=== PATIENT | male | born 1970 | race Caucasian/White ===

== ENCOUNTER 2017-07-19 02:22 | Emergency (ER) | payer BC, OTHER ==
[~2017-07-19] VITALS: Ht 188 cm; Wt 99.2 kg
[~2017-07-19 02:22] MED LIST: ASPEC81 PO; LPR25 PO; LPT40 PO; PLV75 PO
[2017-07-19 02:24] VITALS: TEMP 36.4; Ht 188 cm; Wt 99.2 kg
[2017-07-19] MEDS ORDERED: KETOROLAC TROMETHAMINE 30 MG/ML VIAL IV STA (02:46)
[2017-07-19] MEDS ORDERED: SODIUM CHLORIDE 0.9% 1000ML 1,000 ML IV STA (02:46)
[2017-07-19] MEDS ORDERED: ONDANSETRON INJ 2 MG/ML 2 ML VIAL IV STA (02:46)
--- NOTE | 2017-07-19 02:50 | EMERGENCY ROOM VISIT NOTE ---
History First contact with patient: 02:28 Chief Complaint: KIDNEY STONE Stated Complaint: KIDNEY STONE History of Present Illness The patient is a 47 year old male who presents to the Emergency Room with complaints of right flank pain times one hour. The patient states his pain started suddenly. The pain radiates from the right flank into the groin. He states that the pain is a constant 5/10, and intermittently worsens to become a 10/10. He has associated nausea without vomiting. He denies urinary symptoms. The patient does report a history of kidney stones but has not had one in several years. Review of Systems A complete 10 point review of systems was reviewed with the patient with pertinent positives and negatives as per history of present illness. All else were negative. Past Medical/Surgical History Medical Problems: (1) CALCULUS OF KIDNEY Family History Cancer Heart disease Hypertension Social History Smoking Status: Never Smoker Alcohol Use: none Marital Status: Housing Status: lives with significant other Occupation Status: employed Current/Historical Medications Scheduled Aspirin (Aspirin Ec), 81 MG PO DAILY Atorvastatin (Lipitor), 80 MG PO DAILY Clopidogrel (Plavix), 75 MG PO DAILY Metoprolol Tartrate (Lopressor) (Lopressor), 12.5 MG PO BID Ondasetron Odt (Zofran Odt), 4 MG SL Q6H Tamsulosin Hcl (Flomax), 0.4 MG PO DAILY Scheduled PRN Oxycodone/Acetaminophen 5MG/325MG (Percocet 5MG/325MG), 1-2 TABS PO Q4H PRN for Pain Physical Exam Vital Signs Date Time Temp Pulse Resp B/P (MAP) Pulse Ox O2 Delivery O2 Flow Rate FiO2 07/19/17 04:33 63 18 128/76 98 07/19/17 02:24 36.4 58 18 153/99 98 Room Air Physical Exam VITALS: Vitals are noted on the nurse's note and reviewed by myself. Vital signs stable. GENERAL: This is a 47-year-old male, in no acute distress, nondiaphoretic, well- developed well-nourished. SKIN: No rashes. HEART: Regular rate and rhythm without murmurs gallops or rubs. LUNGS: Clear to auscultation bilaterally without wheezes, rales or rhonchi. ABDOMEN: Positive bowel sounds x 4. Soft, mild tenderness in the right lower quadrant. No CVA tenderness. NEURO: Patient was alert and oriented to person place and time. Medical Decision & Procedures ER Provider Diagnostic Interpretation: CT ABDOMEN & PELVIS WITHOUT CONTRAST: 3 mm calculus seen within distal right ureter, which causes minimal hydroureteronephrosis. There are additional nonobstructing calculi within both kidneys. Additional findings: Lower thorax is unremarkable. There are couple low-density lesions within the liver, the largest in the right hepatic lobe measuring 5.7 cm. These are grossly unchanged compared to the prior. Again these are of indeterminate etiology. Gallbladder, spleen, pancreas and adrenal glands are unremarkable. Appendix is unremarkable. Bowel is unremarkable. Again seen is a full masslike lesion occupying and expanding the left neural foramen at L2-3. Again findings may represent but are not limited to a perineural cyst versus neurofibroma. No acute osseous abnormality. Radiologist: Celso Forrest MD Laboratory Results 07/19/17 02:50 Red Blood Count 5.08, Mean Corpuscular Volume 86.2, Mean Corpuscular Hemoglobin 29.9, Mean Corpuscular Hemoglobin Concent 34.7, Mean Platelet Volume 10.1, Neutrophils (%) (Auto) 51.8, Lymphocytes (%) (Auto) 33.7, Monocytes (%) (Auto) 11.5, Eosinophils (%) (Auto) 2.0, Basophils (%) (Auto) 0.7, Neutrophils # (Auto ) 3.56, Lymphocytes # (Auto) 2.32, Monocytes # (Auto) 0.79, Eosinophils # (Auto ) 0.14, Basophils # (Auto) 0.05 07/19/17 02:50 Test 07/19/17 02:45 07/19/17 02:50 Urine Color DK YELLOW Urine Appearance CLOUDY (CLEAR) Urine pH 5.0 (4.5-7.5) Urine Specific Radisson 1.030 (1.000-1.030) Urine Protein NEG (NEG) Urine Glucose (UA) NEG (NEG) Urine Ketones TRACE (NEG) Urine Occult Blood 3+ (NEG) Urine Nitrite NEG (NEG) Urine Bilirubin NEG (NEG) Urine Urobilinogen NEG (NEG) Urine Leukocyte Esterase NEG (NEG) Urine WBC (Auto) 1-5 /hpf (0-5) Urine RBC (Auto) >30 /hpf (0-4) Urine Hyaline Casts (Auto) 1-5 /lpf (0-5) Urine Epithelial Cells (Auto) 10-20 /lpf (0-5) Urine Bacteria (Auto) NEG (NEG) White Blood Count 6.88 K/uL (4.8-10.8) Red Blood Count 5.08 M/uL (4.7-6.1) Hemoglobin 15.2 g/dL (14.0-18.0) Hematocrit 43.8 % (42-52) Mean Corpuscular Volume 86.2 fL (80-100) Mean Corpuscular Hemoglobin 29.9 pg (25-34) Mean Corpuscular Hemoglobin Concent 34.7 g/dl (32-36) Platelet Count 217 K/uL (130-400) Mean Platelet Volume 10.1 fL (7.4-10.4) Neutrophils (%) (Auto) 51.8 % Lymphocytes (%) (Auto) 33.7 % Monocytes (%) (Auto) 11.5 % Eosinophils (%) (Auto) 2.0 % Basophils (%) (Auto) 0.7 % Neutrophils # (Auto) 3.56 K/uL (1.4-6.5) Lymphocytes # (Auto) 2.32 K/uL (1.2-3.4) Monocytes # (Auto) 0.79 K/uL (0.11-0.59) Eosinophils # (Auto) 0.14 K/uL (0-0.5) Basophils # (Auto) 0.05 K/uL (0-0.2) RDW Standard Deviation 39.3 fL (36.4-46.3) RDW Coefficient of Variation 12.3 % (11.5-14.5) Immature Granulocyte % (Auto) 0.3 % Immature Granulocyte # (Auto) 0.02 K/uL (0.00-0.02) Anion Gap 8.0 mmol/L (3-11) Est Creatinine Clear Calc Drug Dose 102.3 ml/min Estimated GFR () 90.9 Estimated GFR (Non- 78.4 BUN/Creatinine Ratio 17.7 (10-20) Calcium Level 8.8 mg/dl (8.5-10.1) Total Bilirubin 0.6 mg/dl (0.2-1) Aspartate Amino Transf (AST/SGOT) 30 U/L (15-37) Alanine Aminotransferase (ALT/SGPT) 59 U/L (12-78) Alkaline Phosphatase 75 U/L (45-117) Total Protein 7.2 gm/dl (6.4-8.2) Albumin 3.9 gm/dl (3.4-5.0) Globulin 3.3 gm/dl (2.5-4.0) Albumin/Globulin Ratio 1.2 (0.9-2) Lipase 153 U/L (73-393) Medications Administered Medications (Trade) Dose Ordered Sig/Geo Route Start Time Stop Time Status Last Admin Dose Admin Sodium Chloride 1,000 ml @ 999 mls/hr Q1H1M STAT IV 07/19/17 02:46 07/19/17 03:46 DC 07/19/17 02:55 999 MLS/HR Ondansetron HCl (Zofran Inj) 4 mg NOW STAT IV 07/19/17 02:46 07/19/17 02:47 DC 07/19/17 02:55 4 MG Ketorolac Tromethamine (Toradol Inj) 30 mg NOW STAT IV 07/19/17 02:46 07/19/17 02:47 DC 07/19/17 02:57 30 MG Oxycodone/ Acetaminophen (Percocet 5/ 325MG Home Pack) 1 homepack UD ONCE PO 07/19/17 04:15 07/19/17 04:16 DC 07/19/17 04:28 1 HOMEPACK Ondansetron HCl (ZOFRAN ODT 4MG Home Pack) 1 homepack UD ONCE PO 07/19/17 04:15 07/19/17 04:16 DC 07/19/17 04:28 1 HOMEPACK Tamsulosin HCl (Flomax Cap) 0.4 mg NOW ONCE PO 07/19/17 04:15 07/19/17 04:16 DC 07/19/17 04:28 0.4 MG ED Course The patient was evaluated as above. Labs were drawn and IV access was obtained. Patient was medicated with 1 L normal saline solution, 30 mg Toradol IV and [address] of the abdomen and pelvis was performed and read by radiology as above. Patient was reevaluated and stated he felt much better. Discharge instructions were reviewed with the patient. The patient verbalized understanding of my assessment and treatment plan and was discharged home in good condition. Medical Decision Differential diagnosis includes kidney stone, pyelonephritis, gastroenteritis, colitis, pancreatitis, cholecystitis, among others. The patient is a 47-year-old male who presents today complaining of right flank pain. Labs were unremarkable. Urinalysis was not suggestive of infection. CT shows a 3 mm obstructing kidney stone. Patient will be treated with pain and nausea medications at home. He was given a urine strainer. He was encouraged to return here for any worsening or new/concerning symptoms. Based on the patient's presentation and work up, I feel the patient is stable for outpatient treatment. The patient was educated to return to the emergency department for any worsening of their current condition or new/concerning symptoms. He will follow up with his PCP/urology as needed. Medication Reconcilliation Current Medication List: was personally reviewed by me Blood Pressure Screening Patient's blood pressure: Normal blood pressure Impression Primary Impression: Ureteral calculus Departure Information Dispostion Home / Self-Care Condition GOOD Prescriptions Tamsulosin Hcl (FLOMAX) 0.4 Mg Cap 0.4 MG PO DAILY for 10 Days, #10 CAP Prov: Alona Madden PA-C 07/19/17 Ondasetron Odt (ZOFRAN ODT) 4 Mg Tab 4 MG SL Q6H for Nausea, #15 TAB Prov: Alona Madden PA-C 07/19/17 Oxycodone/Acetaminophen 5MG/325MG (PERCOCET 5MG/325MG) Tab 1-2 TABS PO Q4H Y for Pain, #24 TAB For Initial Treatment Prov: Alona Madden PA-C 07/19/17 Referrals Moe Patel M.D. (PCP) Patient Instructions My [facility] Additional Instructions You have been treated in the Emergency Department today for a Kidney Stone ( Nephrolithiasis). You have been prescribed Percocet to be used for pain control. This is a narcotic medication. You cannot drive or consume alcohol while on this medicine. This medicine should only be used for pain that cannot be controlled with [id number] pain medicines. You have been prescribed Zofran to be used for any nausea or vomiting. Take as prescribed. You have been prescribed Flomax 0.4 mg to be taken ONCE daily. This medicine has been prescribed as it can help relax the smooth muscles of the urinary tract increasing transit time of the kidney stone. For pain control, you can use the following [id number] medicines (if >12 yo): - Regular strength (325mg/tab) Tylenol (acetaminophen) 2 tabs every 4-6 hours as needed. Do not exceed 12 tablets in a 24 hour period. Avoid taking more than 4 grams (4000 mg) of Tylenol per day. This includes any other sources of acetaminophen you may take on a regular basis. - Regular strength (200 mg/tab) Advil (ibuprofen) 1-2 tabs every 4-6 hours as needed. Do not exceed a dose of 3200 mg per day. You have been provided a strainer and specimen collection cup. You should strain your urine to collect any passed stones. Your stones can be placed into the specimen cup and taken to your Urologist for further evaluation. Follow up with your primary care provider this week. Return to the Emergency Department if your symptoms persist despite the treatment plan outlined above or if you develop the following symptoms: intractable pain, fever, chills, or large amounts of blood in your urine.
[2017-07-19 03:02] LABS: BASO % 0.7 %; BASO ABS # 0.05 K/uL (0-0.2); COMPLETE YES; HEMATOCRIT 43.8 % (42-52); IG% 0.3 %; LYMPH % 33.7 %; LYMPH ABS # 2.32 K/uL (1.2-3.4); MEAN CELL VOLUME 86.2 fL (80-100); MEAN CORPUSCULAR HEMOGLOBIN 29.9 pg (25-34); MEAN CORPUSCULAR HGB CONC 34.7 g/dl (32-36); MEAN PLATELET VOLUME 10.1 fL (7.4-10.4); MONO % 11.5 %; NEUT % 51.8 %; PLATELET COUNT 217 K/uL (130-400); RED BLOOD COUNT 5.08 M/uL (4.7-6.1); WHITE BLOOD COUNT 6.88 K/uL (4.8-10.8)
[2017-07-19] MEDS ORDERED: METO25TA56 PO (03:10)
[2017-07-19] MEDS ORDERED: ASPI81TA28 PO (03:10)
[2017-07-19] MEDS ORDERED: ATOR-26 PO (03:10)
[2017-07-19] MEDS ORDERED: CLOP1TAB15 PO (03:10)
[2017-07-19 03:22] LABS: BUN/CREATININE RATIO 17.7 (10-20); CALCIUM 8.8 mg/dl (8.5-10.1); CREATININE 1.1 mg/dl (0.60-1.40); POTASSIUM 3.8 mmol/L (3.5-5.1)
[2017-07-19 03:25] LABS: ALB/GLOB RATIO 1.2 (0.9-2)
[2017-07-19 03:37] LABS: MANUAL MICROSCOPIC REQUIRED? NO; REVIEW REQ? NO; URINE APPEARANCE CLOUDY (CLEAR); URINE BILIRUBIN NEG (NEG); URINE COLOR DK YELLOW; URINE NITRITE NEG (NEG); UROBILINOGEN NEG (NEG); ZZUR CULT IF INDIC CLEAN CATCH NO
[2017-07-19] MEDS ORDERED: TAMS0.4C38 PO (04:13)
[2017-07-19] MEDS ORDERED: ONDA4TAB10 SL (04:13)
[2017-07-19] MEDS ORDERED: OXYC-57 PO (04:13)
[2017-07-19] MEDS ORDERED: TAMSULOSIN HCL 0.4 MG CAP PO ONE (04:15)
[2017-07-19] MEDS ORDERED: PERCOCET HOME PACK PO ONE (04:15)
[2017-07-19] MEDS ORDERED: ONDANSETRON HOME PACK 4MG OD TAB PO ONE (04:15)
[2017-07-19 04:33] VITALS: BP 128/76; PULSE 63; O2SAT 98
--- NOTE | 2017-07-19 07:14 | DIAGNOSTIC IMAGING REPORT ---
ABD/PELVIS WITHOUT FOR STONE HISTORY: 47 years-old Male right flank pain, hx kidney stones acute right-sided flank pain with history of kidney stones. COMPARISON: CT abdomen and pelvis 02/22/2011, MRI lumbar spine 08/25/2011 and 04/21/2013, PET CT 09/15/2011 TECHNIQUE: Multiple axial CT images of the abdomen and pelvis were obtained without IV contrast. A dose lowering technique was used consistent with the principals of OLIVIA. FINDINGS: There is minimal dependent bibasilar atelectasis. No pneumoperitoneum. Imaged inferior cardiac chambers are unremarkable. There is redemonstration of multiple hepatic lesions, largest of which is loculated with peripherally slightly increased attenuation and central low-attenuation, 4.4 x 5.4 cm which previously measured 5.1 x 4.0 cm on study dated 02/22/2011. 2.1 x 1.8 cm posterior right hepatic lobe lesion seen on image 32 of series 2 previously measured 1.3 x 0.9 cm on study dated 02/22/2011. The largest lesion within the left hepatic lobe measures 1.8 x 1.4 cm, also unchanged. Gallbladder is mildly contracted. Spleen, pancreas and adrenal glands are within normal limits. 3 mm nonobstructing calculus is seen within the inferior pole left kidney. There are several nonobstructing right renal calculi present, largest of which measures 3 mm within the inferior pole. There is mild right-sided hydroureteronephrosis with surrounding inflammatory stranding secondary to a 4 x 3 x 4 mm calculus of the distal right ureter which is present approximately 1.5 cm proximal to the ureterovesicular junction. Urinary bladder is partially collapsed. Prostate is unremarkable. The abdominal aorta is normal in course and caliber. There is no bowel obstruction or focal bowel wall thickening. Rectosigmoid is collapsed. The appendix is normal. Ovoid slightly low attenuating circumscribed structure of the left L2-L3 neuroforamen is again seen which has slightly decreased in size from comparison CT now measuring 4.0 x 2.2 x 4.7 cm in transverse, AP and craniocaudal dimensions. This again causes expansion and smooth remodeling of the left neuroforamen. Unchanged lytic 2.3 x 1.5 cm lesion involves the left lower sternal body, also unchanged. This again suggests a benign lesion as seen on comparison studies. The bones appear otherwise intact and unremarkable. IMPRESSION: 1. Mild right-sided hydroureteronephrosis secondary to a 4 x 3 x 4 mm calculus of the distal right ureter which is present approximately 1.5 cm proximal to the ureterovesicular junction. Bilateral nonobstructing renal calculi are present as above. 2. Several mildly complex indeterminate hepatic lesions are again noted. The lesions appear to be slightly increased in size from comparison study dated 02/22/2011. 3. Mildly decreased size of expansile ovoid circumscribed mass centered within the left L2-L3 neuroforamen, again suggesting neurofibroma or schwannoma. 4. Unchanged lytic lesion of the lower left sternal body which did not demonstrate FDG uptake on comparison PET CT suggesting benign etiology. The above report was generated using voice recognition software. It may contain grammatical, syntax or spelling errors. Electronically signed by: Polo White M.D. 07/19/2017 7:13 AM Dictated Date/Time: 07/19/2017 6:57 AM
== END 2017-07-19 04:34 | disposition home or self-care (01) ==
LOC: C.EDB 02:22
DX: N13.2 Hydronephrosis with renal and ureteral calculous obstruction (principal); Z80.9 Family history of malignant neoplasm, unspecified; Z82.49 Family history of ischemic heart disease and other diseases of the circulatory system; Z79.82 Long term (current) use of aspirin; Z79.01 Long term (current) use of anticoagulants; Z79.899 Other long term (current) drug therapy

== ENCOUNTER → 2017-12-27 | Outpatient (CLI) | payer OTHER ==
[~2017-12-27] MED LIST changes: -ASPEC81 PO; +ASPI81TA28 PO; +ATOR-26 PO; +CLOP1TAB15 PO; -LPR25 PO; -LPT40 PO; +METO25TA56 PO; +ONDA4TAB10 SL; +OXYC-57 PO; -PLV75 PO
== END | disposition home or self-care (01) ==
LOC: C.LAB 08:35
PROVIDERS: ATTEND Internal Medicine Cardiovascular Disease
DX: E78.5 Hyperlipidemia, unspecified (principal)

== ENCOUNTER 2020-12-04 09:58 | Inpatient (IN) ==
[2020-12-04] MEDS ORDERED: ASPIRIN CHEW 324 MG PO STA (10:19)
[2020-12-04] MEDS ORDERED: NITROGLYCERIN SL 0.4 MG/TAB TAB SL STA (10:19)
[2020-12-04] MEDS ORDERED: NITROGLYCERIN SL 0.4 MG/TAB TAB ONE (10:22)
[2020-12-04] MEDS ORDERED: MIDAZOLAM HCL 1 MG/ML 2ML VIAL ONE ×2 (10:25→11:16)
[2020-12-04] MEDS ORDERED: niCARdipine HCL INJ 2.5 MG/ML 10 ML AMP ONE (10:26)
[2020-12-04] MEDS ORDERED: HEPARIN (PORCINE) 1000 UNIT/ML 10 ML (CATH LAB USE ONLY) ONE (10:26)
[2020-12-04] MEDS ORDERED: fentaNYL citrate 100 MCG/2 ML VIAL ONE (10:26)
[2020-12-04] MEDS ORDERED: NITROGLYCERIN/D5W 100MCG/ML 20ML SYR ONE (10:26)
[2020-12-04 10:28] LABS: Basophils # (auto) 0.03 K/uL (0-0.2); Basophils % (auto) 0.4 %; Eosinophils # (auto) 0.02 K/uL (0-0.5); Eosinophils % (auto) 0.3 %; Hematocrit (blood only) 45.8 % (42-52); Immature Granulocytes # (auto) 0.01 K/uL (0.00-0.02); Immature Granulocytes % (auto) 0.1 %; Lymphocytes # (auto) 2.71 K/uL (1.2-3.4); Lymphocytes % (auto) 38.6 %; Mean Corpuscular Hgb Conc 34.9 g/dL (32-36); Mean Corpuscular Volume 85.9 fL (80-100); Mean Platelet Volume 10.1 fL (7.4-10.4); Monocytes # (auto) 0.77 K/uL (0.11-0.59); Neutrophils # (auto) 3.48 K/uL (1.4-6.5); Neutrophils % (auto) 49.6 %; Platelet Count 266 K/uL (130-400); RDW Coefficient of Variation 12.6 % (11.5-14.5); RDW Standard Deviation 39.7 fL (36.4-46.3); Red Blood Count 5.33 M/uL (4.7-6.1); White Blood Count 7.02 K/uL (4.8-10.8)
[2020-12-04 10:33] LABS: iSTAT Creatinine 1.1 mg/dl (0.6-1.3); iSTAT Hemoglobin 15.6 g/dl (14.0-18.0); iSTAT Ionized Calcium 1.13 mmol/l (1.12-1.32); iSTAT Potassium 3.8 mmol/L (3.3-5.0)
--- NOTE | 2020-12-04 10:38 | Emergency Department Note ---
History of Present Illness General Chief complaint: Cardiac Assessment Stated complaint: CHEST TIGHTNESS SOB HX CARDIAC Time Seen by Provider: 12/04/20 10:18 Source: patient and family (Mother who is at the bedside) Mode of arrival: ambulatory Limitations: no limitations History of Present Illness Maximum Pain Intensity: 4 This patient is a 50-year-old male who comes in planing of chest pain and shortness of breath and nausea. Started this morning about 2 hours ago. He has a history of cardiac disease with stents. He is on Plavix but withheld it recently for endoscopy. He tried to restart it this morning. The nurse came and got me because she was concerned about his EKG he was placed in room A9 on a court recording monitor I saw him immediately. I repeated an EKG and did call a heart alert. He denies any fall or trauma any recent illness exposure to Covid any fever chills or any blood or black colors in his stool. He makes his pain better or worse. It is not pleuritic. Home Medications Medication Instructions Recorded Confirmed Type aspirin 81 mg PO QAM 08/30/18 12/04/20 History clopidogrel 75 mg tablet 75 mg PO QAM #90 tab 12/27/19 12/04/20 Rx atorvastatin 80 mg tablet 80 mg PO QAM #90 tab 01/07/20 12/04/20 Rx metoprolol tartrate 25 mg tablet 12.5 mg PO BID #90 tab 01/07/20 12/04/20 Rx Allergies Allergy/AdvReac Type Severity Reaction Status Date / Time No Known Drug Allergies Allergy Verified 12/04/20 10:42 Past Med/Surg History Medical History CAD (coronary artery disease) History of kidney stones History of OH (myocardial infarction) 2013--follows with Dr. Johnson Hypercholesterolemia On anticoagulant therapy plavix daily d/t stents/OH Surgical History History of cardiac cath (~06/2014) @ [facility] History of colonoscopy with polypectomy History of heart artery stent (2)ARIANA @ [facility] 06/2014 History of wisdom tooth extraction Family History Uncle Family hx of colon cancer Father Family hx colonic polyps Other No family history of adverse response to anesthesia No pertinent family history Social History Smoking Status: Never smoker Second Hand Exposure: No; Hx Alcohol Use: No Hx Substance Use: No Preferred Language: Citizen Of [place] Communication Ability: Effective [employer]el[employer]r Required: No Beliefs That Will Affect Care: None Current Living Situation: Spouse Other Information That Helps Us Care for You: No Feels Safe at Home: Yes Safety Concerns: Feels Safe At This Time Assistive Devices: Glasses Review of Systems A total of 10 systems reviewed and were otherwise negative Physical Exam Vital Signs Vital Signs - 24 hr 12/04/20 10:05 12/04/20 10:13 12/04/20 10:15 Temperature 36.6 C Temperature Source Temporal Artery Scan Pulse Rate 55 L 61 63 Pulse Rate [Left Apical] Pulse Rate from SpO2 Sensor Pulse Rhythm Pulse Rhythm [Left Apical] Pulse Strength [Left Apical] Respiratory Rate 20 25 H 25 H Respiratory Effort / Characteristics Respiratory Depth Respiratory Pattern Blood Pressure 141/92 H Blood Pressure [Left Arm] Blood Pressure Mean 108 Blood Pressure Mean [Left Arm] Blood Pressure Position [Left Arm] Pulse Oximetry 100 Oxygen Delivery Method Room Air Sepsis Recent Fever Within 48 Hours No Sepsis New/Unexplained Change in Mental Status No Sepsis Action Taken by Nursing No Action Required 12/04/20 10:17 12/04/20 10:20 12/04/20 10:24 Temperature Temperature Source Pulse Rate 62 65 64 Pulse Rate [Left Apical] Pulse Rate from SpO2 Sensor 61 64 Pulse Rhythm Regular Pulse Rhythm [Left Apical] Pulse Strength [Left Apical] Respiratory Rate 27 H 24 24 Respiratory Effort / Characteristics SOB on Exertion Respiratory Depth Normal Respiratory Pattern Blood Pressure 155/100 H 150/90 H Blood Pressure [Left Arm] Blood Pressure Mean 118 110 Blood Pressure Mean [Left Arm] Blood Pressure Position [Left Arm] Pulse Oximetry 100 100 100 Oxygen Delivery Method Room Air Sepsis Recent Fever Within 48 Hours Sepsis New/Unexplained Change in Mental Status Sepsis Action Taken by Nursing 12/04/20 10:25 12/04/20 10:29 12/04/20 10:30 Temperature Temperature Source Pulse Rate 64 66 71 Pulse Rate [Left Apical] Pulse Rate from SpO2 Sensor 63 68 67 Pulse Rhythm Pulse Rhythm [Left Apical] Pulse Strength [Left Apical] Respiratory Rate 30 H 27 H 32 H Respiratory Effort / Characteristics Respiratory Depth Respiratory Pattern Blood Pressure 151/89 H 151/91 H 123/96 Blood Pressure [Left Arm] Blood Pressure Mean 109 111 105 Blood Pressure Mean [Left Arm] Blood Pressure Position [Left Arm] Pulse Oximetry 100 100 99 Oxygen Delivery Method Sepsis Recent Fever Within 48 Hours Sepsis New/Unexplained Change in Mental Status Sepsis Action Taken by Nursing 12/04/20 10:31 12/04/20 10:35 12/04/20 10:36 Temperature Temperature Source Pulse Rate 76 61 63 Pulse Rate [Left Apical] Pulse Rate from SpO2 Sensor 75 61 63 Pulse Rhythm Pulse Rhythm [Left Apical] Pulse Strength [Left Apical] Respiratory Rate 19 25 H 24 Respiratory Effort / Characteristics Respiratory Depth Respiratory Pattern Blood Pressure 137/88 Blood Pressure [Left Arm] Blood Pressure Mean 104 Blood Pressure Mean [Left Arm] Blood Pressure Position [Left Arm] Pulse Oximetry 97 100 99 Oxygen Delivery Method Sepsis Recent Fever Within 48 Hours Sepsis New/Unexplained Change in Mental Status Sepsis Action Taken by Nursing 12/04/20 10:37 12/04/20 10:38 12/04/20 10:45 Temperature Temperature Source Pulse Rate 61 61 58 L Pulse Rate [Left Apical] Pulse Rate from SpO2 Sensor 60 62 59 L Pulse Rhythm Pulse Rhythm [Left Apical] Pulse Strength [Left Apical] Respiratory Rate 25 H 26 H 25 H Respiratory Effort / Characteristics Respiratory Depth Respiratory Pattern Blood Pressure 129/95 152/91 H Blood Pressure [Left Arm] Blood Pressure Mean 106 111 Blood Pressure Mean [Left Arm] Blood Pressure Position [Left Arm] Pulse Oximetry 100 100 100 Oxygen Delivery Method Sepsis Recent Fever Within 48 Hours Sepsis New/Unexplained Change in Mental Status Sepsis Action Taken by Nursing 12/04/20 10:47 12/04/20 12:12 12/04/20 12:27 Temperature 36.5 C Temperature Source Oral Pulse Rate 58 L Pulse Rate [Left Apical] 51 L 51 L Pulse Rate from SpO2 Sensor Pulse Rhythm Pulse Rhythm [Left Apical] Regular Regular Pulse Strength [Left Apical] Normal Normal Respiratory Rate 25 H 16 16 Respiratory Effort / Characteristics Non-Labored Non-Labored Respiratory Depth Normal Normal Respiratory Pattern Regular Regular Blood Pressure 152/91 H Blood Pressure [Left Arm] 111/78 131/97 Blood Pressure Mean Blood Pressure Mean [Left Arm] 89 108 Blood Pressure Position [Left Arm] Lying Lying Pulse Oximetry 100 98 98 Oxygen Delivery Method Room Air Room Air Room Air Sepsis Recent Fever Within 48 Hours Sepsis New/Unexplained Change in Mental Status Sepsis Action Taken by Nursing General: Well developed well nourished anxious middle-aged in no acute distress, breathing comfortably on room air. Normal speech HEENT: Normal cephalic atraumatic. Pupils are equal round and reactive to light. Extraocular movements are intact. Oropharynx is pink with moist mucous membranes. No swelling of the mouth lips or tongue. Neck: Supple with a midline trachea. No meningeal signs or stiffness, no JVD or bruits. No Stridor. Chest: Clear to auscultation bilaterally. No wheezes or rhonchi. No increased work of breathing. Heart: Regular rate and rhythm without murmurs or gallops. Abdomen: Soft nontender, nondistended without rebound guarding or rigidity. Extremities: No cyanosis clubbing or edema. No calf tenderness or assymetry Spine/Back. Non tender to palpation. No CVA tenderness Skin: Good turgor without rashes. Neurologic exam: Cranial nerves two through 12 are intact. Motor and sensation are intact and symmetrical throughout. Course Administered Medications Discontinued Medications Aspirin (Aspirin Chew 324 Mg) 324 mg PO NOW STA Stop: 12/04/20 10:20 Last Admin: 12/04/20 10:30 Dose: 324 mg Documented by: [id number] Eptifibatide (Eptifibatide 2 Mg/Ml 10 Ml Vial ([facility] Use Only)) Confirm A dministered Dose 40 mg IV .STK-MED ONE Stop: 12/04/20 11:07 Last Admin: 12/04/20 12:04 Dose: 18 ml Documented by: [id number] Eptifibatide (Eptifibatide 0.75 Mg/Ml 75mg Vial (E[facility] Use Only)) Confirm Administered Dose 75 mg .ROUTE .STK-MED ONE Stop: 12/04/20 11:08 Last Admin: 12/04/20 12:05 Dose: 75 mg Documented by: [id number] Fentanyl Citrate (Fentanyl Citrate 100 Mcg/2 Ml Vial) Confirm Administered Dose 100 mcg .ROUTE .STK-MED ONE Stop: 12/04/20 10:27 Last Increment: 12/04/20 12:03 Dose: 75 mcg Documented by: [id number] Heparin Sodium (Porcine) (Heparin (Porcine) 1000 Unit/Ml 10 Ml (E[facility] Use Only)) Confirm Administered Dose 10,000 units .ROUTE .STK-MED ONE Stop: 12/04/20 10:27 Last Admin: 12/04/20 12:03 Dose: 8,000 units Documented by: [id number] Heparin Sodium/Sodium Chloride (Heparin In Nss Infusion 1000 Unit/500 Ml (2 U/Ml) Bag) Confirm Administered Dose 3,000 units IV .STK-MED ONE Stop: 12/04/20 10:27 Last Admin: 12/04/20 12:04 Dose: 3,000 units Documented by: [id number] Midazolam HCl (Midazolam Hcl 1 Mg/Ml 2ml Vial) Confirm Administered Dose 2 mg .ROUTE .STK-MED ONE Stop: 12/04/20 10:26 Last Admin: 12/04/20 12:03 Dose: 2 mg Documented by: [id number] Midazolam HCl (Midazolam Hcl 1 Mg/Ml 2ml Vial) Confirm Administered Dose 2 mg .ROUTE .STK-MED ONE Stop: 12/04/20 11:17 Last Increment: 12/04/20 12:05 Dose: 1 mg Documented by: [id number] Nicardipine HCl (Nicardipine Hcl Inj 2.5 Mg/Ml 10 Ml Amp) Confirm Administered Dose 25 mg .ROUTE .STK-MED ONE Stop: 12/04/20 10:27 Last Admin: 12/04/20 12:03 Dose: 25 mg Documented by: [id number] Nitroglycerin (Nitroglycerin Sl 0.4 Mg/Tab Tab) 0.4 mg SL NOW STA Stop: 12/04/20 10:20 Last Admin: 12/04/20 10:23 Dose: 0.4 mg Documented by: [id number] Nitroglycerin (Nitroglycerin Sl 0.4 Mg/Tab Tab) Confirm Administered Dose 0.4 mg .ROUTE .STK-MED ONE Stop: 12/04/20 10:23 Last Admin: 12/04/20 10:28 Dose: 0.4 mg Documented by: [id number] Nitroglycerin/Dextrose (Nitroglycerin/D5w 100mcg/Ml 20ml Syr) Confirm Administered Dose 2,000 mcg .ROUTE .STK-MED ONE Stop: 12/04/20 10:27 Last Admin: 12/04/20 12:04 Dose: 2,000 mcg Documented by: [id number] Ticagrelor (Ticagrelor 90 Mg Tab) Confirm Administered Dose 180 mg PO .STK-MED ONE Stop: 12/04/20 12:09 Last Admin: 12/04/20 12:09 Dose: 180 mg Documented by: [id number] Critical Care Time Critical Care Time: Yes Total Critical Care Time: 30 Due to the patient's chest pain, concern EKG for OH and the need for frequent reassessment, medications, consultation and rapid response to get the patient to the [facility], I have personally spent greater than 30 minutes of critical care time in the direct management of this patient. This includes bedside care, interpretation of diagnostic studies, and testing, discussion with consultants, patient, and family members, and other required patient management activities. This 30 minutes is in excess of all separately billable procedures. Medical Decision Making Differential Diagnosis Acute coronary syndrome, OH, vasospasm, electrolyte or metabolic abnormality, PE, CHF, Covid Medical Records Attestation: I reviewed the patient's medical records. Home Medications Current Medication List: was personally reviewed by me Laboratory Data Attestation: I reviewed the patient's lab results. Result diagrams: 12/04/20 10:14 12/04/20 10:14 Lab Results 12/04/20 12/04/20 12/04/20 Range/Units 10:14 10:14 10:20 WBC 7.02 (4.8-10.8) K/uL RBC 5.33 (4.7-6.1) M/uL Hgb 16.0 (14.0-18.0) g/dL POC Hgb 15.6 (14.0-18.0) g/dl Hct 45.8 (42-52) % POC Hct 46 (42-52) % MCV 85.9 (80-100) fL MCH 30.0 (25-34) pg MCHC 34.9 (32-36) g/dL RDW Std Deviation 39.7 (36.4-46.3) fL RDW Coeff of Digna 12.6 (11.5-14.5) % Plt Count 266 (130-400) K/uL MPV 10.1 (7.4-10.4) fL Immature Gran % (Auto) 0.1 % Neut % (Auto) 49.6 % Lymph % (Auto) 38.6 % Thomas % (Auto) 11.0 % Eos % (Auto) 0.3 % Baso % (Auto) 0.4 % Neut # (Auto) 3.48 (1.4-6.5) K/uL Lymph # (Auto) 2.71 (1.2-3.4) K/uL Thomas # (Auto) 0.77 H (0.11-0.59) K/uL Eos # (Auto) 0.02 (0-0.5) K/uL Baso # (Auto) 0.03 (0-0.2) K/uL Immature Gran # (Auto) 0.01 (0.00-0.02) K/uL POC Sodium 141 (135-144) mmol/L Sodium 140 (136-145) mmol/L POC Potassium 3.8 (3.3-5.0) mmol/L Potassium 3.8 (3.5-5.1) mmol/L POC Chloride 107 (101-112) mmol/L Chloride 110 H (98-107) mmol/L Carbon Dioxide 20 L (21-32) mmol/L POC Total CO2 19 L (24-31) mmol/L Anion Gap 10.0 (3-11) POC Anion Gap 19.0 (16-25) mmol/L POC BUN 20 H (7-18) mg/dl BUN 18 (7-18) mg/dl Creatinine 1.31 (0.6-1.4) mg/dl POC Creatinine 1.1 (0.6-1.3) mg/dl Est Cr Clr Drug Dosing 78.8 ml/min Est GFR ( Amer) 72.0 Est GFR (Non-Af Amer) 62.2 BUN/Creatinine Ratio 13.8 (10-20) Glucose 101 H (70-99) mg/dl POC Glucose (other) 104 H (70-99) mg/dl Calcium 9.6 (8.5-10.1) mg/dl POC Ioniz Calcium Lashonda 1.13 (1.12-1.32) mmol/l Total Bilirubin 1.4 H (0.2-1) mg/dl AST 22 (15-37) U/L ALT 48 (12-78) U/L Alkaline Phosphatase 89 (45-117) U/L Troponin I 0.050 H* (0-0.045) ng/ml Total Protein 7.6 (6.4-8.2) gm/dl Albumin 3.9 (3.4-5.0) gm/dl Globulin 3.7 (2.5-4.0) gm/dl Albumin/Globulin Ratio 1.1 (0.9-2) Lipase 134 (73-393) U/L COVID-19 Eval Order SARS-CoV-2, RNA, NAAT (NEGATIVE) 12/04/20 12/04/20 Range/Units 10:26 10:26 WBC (4.8-10.8) K/uL RBC (4.7-6.1) M/uL Hgb (14.0-18.0) g/dL POC Hgb (14.0-18.0) g/dl Hct (42-52) % POC Hct (42-52) % MCV (80-100) fL MCH (25-34) pg MCHC (32-36) g/dL RDW Std Deviation (36.4-46.3) fL RDW Coeff of Digna (11.5-14.5) % Plt Count (130-400) K/uL MPV (7.4-10.4) fL Immature Gran % (Auto) % Neut % (Auto) % Lymph % (Auto) % Thomas % (Auto) % Eos % (Auto) % Baso % (Auto) % Neut # (Auto) (1.4-6.5) K/uL Lymph # (Auto) (1.2-3.4) K/uL Thomas # (Auto) (0.11-0.59) K/uL Eos # (Auto) (0-0.5) K/uL Baso # (Auto) (0-0.2) K/uL Immature Gran # (Auto) (0.00-0.02) K/uL POC Sodium (135-144) mmol/L Sodium (136-145) mmol/L POC Potassium (3.3-5.0) mmol/L Potassium (3.5-5.1) mmol/L POC Chloride (101-112) mmol/L Chloride (98-107) mmol/L Carbon Dioxide (21-32) mmol/L POC Total CO2 (24-31) mmol/L Anion Gap (3-11) POC Anion Gap (16-25) mmol/L POC BUN (7-18) mg/dl BUN (7-18) mg/dl Creatinine (0.6-1.4) mg/dl POC Creatinine (0.6-1.3) mg/dl Est Cr Clr Drug Dosing ml/min Est GFR ( Amer) Est GFR (Non-Af Amer) BUN/Creatinine Ratio (10-20) Glucose (70-99) mg/dl POC Glucose (other) (70-99) mg/dl Calcium (8.5-10.1) mg/dl POC Ioniz Calcium Lashonda (1.12-1.32) mmol/l Total Bilirubin (0.2-1) mg/dl AST (15-37) U/L ALT (12-78) U/L Alkaline Phosphatase (45-117) U/L Troponin I (0-0.045) ng/ml Total Protein (6.4-8.2) gm/dl Albumin (3.4-5.0) gm/dl Globulin (2.5-4.0) gm/dl Albumin/Globulin Ratio (0.9-2) Lipase (73-393) U/L COVID[facility]19 [facility] SARS-CoV-2, RNA, NAAT NEGATIVE (NEGATIVE) Imaging Data Attestation: I personally reviewed and interpreted this imaging study as follows: My Impression: Chest x-rayno acute infiltrate, failure, pneumothorax seen Radiologist's Impression: XR chest 1V portable HISTORY: Atypical Chest Pain COMPARISON: Chest 07/07/2014. FINDINGS: The lungs are clear. Cardiac silhouette is normal in size. No pleural effusions. No pneumothorax. IMPRESSION: No acute process. ECG Data Attestation: I personally reviewed and interpreted this ECG as follows: Indication: + chest pain Rate (beats per minute): 58 Rhythm: + sinus bradycardia ECG Intervals/blocks: + Normal QRS, + Normal QT and + Normal WA ECG Buhler: + Normal ECG ST segments: + ST elevation (1 and aVL) and + T-wave inversions (Deep T wave inversions in [address] depression. Additionally in lead V3.) ECG Findings: no PACs and no PVCs Comparison ECG Date: from (August 30, 2018) Change: the following changes noted (There are significant changes concerning for ischemia) Additional Comments: EKG #2: Sinus bradycardia with a rate of 59. Normal intervals. No ectopy. There continues to be ST and T wave abnormalities infe riorly/anteriorly/laterally concerning for ischemia. No significant change compared to EKG #1 MDM Narrative This patient comes in complaint of chest pain and shortness of breath. An EKG was obtained in triage. The nurse came and got me as she was concerned about the EKG. I reviewed the EKG and looked at the old and there are definitely changes with some ST abnormalities with T wave abnormalities inferiorly with anterior and some lateral changes potentially as well. I was concerned for an acute OH. I I went and saw the patient immediately we established a second IV. I repeated the EKG and there is no progressive changes but he is having chest pressure he was given aspirin 324 mg chewable. I did call a heart alert. He was also given 2 nitroglycerin sublingual and the chest pain came down from a 4 to a 2 and then to a 0. He looked a lot better. His troponin initially is mildly elevated 0.05. His creatinine was normal. Chest x-ray was done at the bedside and I interpreted it on the machine and did not show any cardiomegaly CHF pneumonia or pneumothorax. Dr. Erwin was in the emergency department and saw the patient briefly and he agreed with the assessment that the patient needed to go to the [facility]. Dr. Mcdaniels then arrived shortly after and is going to take the patient to the [facility] for emergent angioplasty and possible stent. I talked to the patient and his at length and in fact brought her back so she could see the patient in the ED as well. Impression & Plan Acute OH, Chest pain, Shortness of breath, History of coronary artery disease Discharge Plan Visit Data Chief Complaint: Cardiac Assessment Stated Complaint: CHEST TIGHTNESS SOB HX CARDIAC ED Provider: Dick Nath Discharge Problem: Acute OH, Chest pain, Shortness of breath, History of coronary artery disease Patient Disposition: Still a Patient Discharge Instructions Interventions: ED Discharge Assessment Last Done: 12/04/20 10:47 Discharge Problem: Acute OH Qualifiers: Myocardial infarction type: ST elevation myocardial infarction Involved coronary artery: unspecified coronary artery Qualified Code(s): I21.3 - ST elevation (STEMI) myocardial infarction of unspecified site Chest pain Qualifiers: Chest pain type: unspecified Qualified Code(s): R07.9 - Chest pain, unspecified
[2020-12-04 10:46] LABS: Albumin Level 3.9 gm/dl (3.4-5.0); BUN Creatinine Ratio 13.8 (10-20); Calcium 9.6 mg/dl (8.5-10.1); Creatinine Clr Calc Pharmacy 78.8 ml/min; Est GFR (Non-African American) 62.2; Potassium 3.8 mmol/L (3.5-5.1)
[2020-12-04 10:53] LABS: Albumin Globulin Ratio 1.1 (0.9-2); Bilirubin,Total 1.4 mg/dl (0.2-1); Globulin 3.7 gm/dl (2.5-4.0); Total Protein 7.6 gm/dl (6.4-8.2); Troponin I 0.05 ng/ml (0-0.045)
--- NOTE | 2020-12-04 10:53 | XRay Report ---
XR chest 1V portable HISTORY: Atypical Chest Pain COMPARISON: Chest 07/07/2014. FINDINGS: The lungs are clear. Cardiac silhouette is normal in size. No pleural effusions. No pneumot horax. IMPRESSION: No acute process. ACT 112: Negative or not required by law. Electronically signed by: Juliano Marion M.D. 12/04/2020 10:51 AM
[2020-12-04] MEDS ORDERED: EPTIFIBATIDE 2 MG/ML 10 ML VIAL (CATH LAB USE ONLY) IV ONE (11:06)
[2020-12-04] MEDS ORDERED: EPTIFIBATIDE 0.75 MG/ML 75MG VIAL (CATH LAB USE ONLY) ONE (11:07)
[2020-12-04] MEDS ORDERED: TICAGRELOR 90 MG TAB PO ONE (12:08)
--- NOTE | 2020-12-04 12:29 | Pre Anesthesia Assessment ---
Date of Service December 04, 2020 Pre Sedation Assessment Vital Signs Temp Pulse Resp BP Pulse Ox 12/04/20 10:47 97.7 F 58 L 25 H 152/91 H 100 12/04/20 10:45 58 L 25 H 152/91 H 100 12/04/20 10:38 61 26 H 100 12/04/20 10:37 61 25 H 129/95 100 12/04/20 10:36 63 24 99 12/04/20 10:35 61 25 H 137/88 100 12/04/20 10:31 76 19 97 12/04/20 10:30 71 32 H 123/96 99 12/04/20 10:29 66 27 H 151/91 H 100 12/04/20 10:25 64 30 H 151/89 H 100 12/04/20 10:24 64 24 150/90 H 100 12/04/20 10:20 65 24 100 12/04/20 10:17 62 27 H 155/100 H 100 12/04/20 10:15 63 25 H 12/04/20 10:13 61 25 H 12/04/20 10:05 97.9 F 55 L 20 141/92 H 100 Cardiovascular RRR, no murmur, no edema Respiratory normal respiratory effort, lungs clear to auscultation Pre-Sedation Airway Assessment Smoking Status: Never smoker Thyromental Distance: > or= 3.5 Finger Breadths Oral Cavity: + WNL Mallampati Class: III Procedure Planning Contraindications for Sedation: none Current Medications Reviewed: Yes Notes The planned sedation has been discussed with the patient. Informed Consent was obtained. I have identified the patient, determined the appropriateness of sedation and have assessed the patient immediately prior to the procedure. All medicine(s) and interventions are by my order.
--- NOTE | 2020-12-04 12:30 | Post Anesthesia Assessment ---
Date of Service December 04, 2020 Post Sedation Assessment Vital Signs Temp Pulse Resp BP Pulse Ox 12/04/20 10:47 97.7 F 58 L 25 H 152/91 H 100 12/04/20 10:45 58 L 25 H 152/91 H 100 12/04/20 10:38 61 26 H 100 12/04/20 10:37 61 25 H 129/95 100 12/04/20 10:36 63 24 99 12/04/20 10:35 61 25 H 137/88 100 12/04/20 10:31 76 19 97 12/04/20 10:30 71 32 H 123/96 99 12/04/20 10:29 66 27 H 151/91 H 100 12/04/20 10:25 64 30 H 151/89 H 100 12/04/20 10:24 64 24 150/90 H 100 12/04/20 10:20 65 24 100 12/04/20 10:17 62 27 H 155/100 H 100 12/04/20 10:15 63 25 H 12/04/20 10:13 61 25 H 12/04/20 10:05 97.9 F 55 L 20 141/92 H 100 Recovery Score Activity: Moves 4 extremities Respiration: Deep Breath/Cough Circulation: +/-20% PreAnes Value Consciousness: Fully Awake Oxygen Saturation: O2 needed for >90% Discharge Sedation Level of Care: Fast Track Phase II Post Sedation Plan On clinical assessment, the patient appears to have tolerated the sedation without complications. Patient is recovering as anticipated. Patient will continue to be monitored by nursing and may be discharged when sedation discharge criteria are met per below protocol. Upon Completions of procedure up to 15 minutes continue every 5 minute vital signs and the P.A.R. score; then discharge to a Phase I or Fast Track to Phase II per the following guidelines: * Discharge Patient to appropriate Phase II area if PAR is 8 or greater or return to pre- procedure baseline. The post - procedure orders will be as directed. * If PAR score is less than 8 or not return to pre-procedure baseline then patient will follow Phase I monitoring till PAR is reached for Phase II. The Phase I may be done in procedure room or may call to secure a Phase I area. * If naloxone or flumazenil are used for reversal, hold in Phase I for continued monitoring from when last reversal dose was given for a minimum of 60 minutes or longer pending the nurse and/or physician discretion of patient condition before discharge to Phase II. Please call the Sedation Physician to re-evaluate and complete post-note for discharge to Phase II area. Do NOT discharge from procedure sedation or Phase 1 until post- sedation evaluation note is complete by procedure /sedation MD Sedation Discharge Instructions to be given to the patient at discharge to home.
[2020-12-04] MEDS ORDERED: ACETAMINOPHEN 325 MG TAB PO PRN (12:31)
[2020-12-04] MEDS ORDERED: EPTIFIBATIDE BOLUS/DRIP IV STA (12:31)
[2020-12-04] MEDS ORDERED: ONDANSETRON INJ 2 MG/ML 2 ML VIAL IV PRN (12:31)
[2020-12-04] MEDS ORDERED: ICU PROTOCOL FOR HYPERGLYCEMIA PRN (12:36)
--- NOTE | 2020-12-04 12:44 | Cardiology Consultation ---
Date of Consultation December 04, 2020 Assessment & Plan (1) Acute NH: Presentation consistent with ACS and recommend proceeding with urgent cardiac catheterization and likely primary PCI. No apparent contraindications to procedure. Discussed risks, benefits, alternatives of procedure with patient and they are willing to proceed. Further recommendations pending findings of coronary angiography. History of Present Illness Attending Physician: Ricardo Mcdaniels MD History of Present Illness Mr. Desai is a 50-year-old man here with acute chest pain and ECG consistent with ACS. Patient seen emergently in the ED after heart alert activated after serial ECGs. Patient followed by Dr. Johnson for his cardiac care. Past cardiac history remarkable for prior STEMI in 2013 at which time had an occluded first diagonal treated with 2 overlapping drug-eluting stents. Cardiac risk factors include hyperlipidemia and family history of premature CAD with mother from an NH in her 50s. Chest pain began approximately 90 minutes prior to arrival while at rest. Describes substernal pain with associated diaphoresis, vomiting. Pain reminiscent of prior symptoms with NH. Of note patient had been on long-term DAPT with aspirin, clopidogrel. Clopidogrel recently on hold for colonoscopy done 12/01/2020. Found to have sessile polyps. Patient with persistent chest pain in the ED despite sublingual nitroglycerin. ECG showed sinus rhythm with new deep ST depressions, T wave inversions in 3, aVF and V3. Allergies Allergy/AdvReac Type Severity Reaction Status Date / Time No Known Drug Allergies Allergy Verified 12/04/20 10:42 Home Medications Medication Instructions Recorded Confirmed Type aspirin 81 mg PO QAM 08/30/18 12/04/20 History clopidogrel 75 mg tablet 75 mg PO QAM #90 tab 12/27/19 12/04/20 Rx atorvastatin 80 mg tablet 80 mg PO QAM #90 tab 01/07/20 12/04/20 Rx metoprolol tartrate 25 mg tablet 12.5 mg PO BID #90 tab 01/07/20 12/04/20 Rx Patient History Medical History CAD (coronary artery disease) History of kidney stones History of NH (myocardial infarction) 2013--follows with Dr. Johnson Hypercholesterolemia On anticoagulant therapy plavix daily d/t stents/NH Surgical History History of cardiac cath (~06/2014) @ [facility] History of colonoscopy with polypectomy History of heart artery stent (2)ARIANA @ [facility] 06/2014 History of wisdom tooth extraction Family History Uncle Family hx of colon cancer Father Family hx colonic polyps Other No family history of adverse response to anesthesia No pertinent family history Social History Smoking Status: Never smoker Second Hand Exposure: No; Hx Alcohol Use: No Hx Substance Use: No Preferred Language: Citizen Of [place] Communication Ability: Effective [employer] Membership Sales Agent Required: No Beliefs That Will Affect Care: None Current Living Situation: Spouse Feels Safe at Home: Yes Assistive Devices: Glasses Review of Systems Review of Systems: All systems reviewed & are unremarkable except as noted in HPI & below Physical Exam Physical Exam: General: Anxious, diaphoretic HEENT: Mask in place Lungs: Clear to auscultation bilaterally Cardiac: Regular rate and rhythm, no murmurs. Abdomen: Soft, nontender. Extremities: Warm, well perfused, no edema. 2+ radial pulses Skin: No rashes or lesions. Neuro: Nonfocal Psych: Alert orient x3, normal affect and mood Results & Data ([facility]) Vital Signs (Past 12 Hours) Vital Signs Temp Pulse Resp BP Pulse Ox 12/04/20 10:47 97.7 F 58 L 25 H 152/91 H 100 12/04/20 10:45 58 L 25 H 152/91 H 100 12/04/20 10:38 61 26 H 100 12/04/20 10:37 61 25 H 129/95 100 12/04/20 10:36 63 24 99 12/04/20 10:35 61 25 H 137/88 100 12/04/20 10:31 76 19 97 12/04/20 10:30 71 32 H 123/96 99 12/04/20 10:29 66 27 H 151/91 H 100 12/04/20 10:25 64 30 H 151/89 H 100 12/04/20 10:24 64 24 150/90 H 100 12/04/20 10:20 65 24 100 12/04/20 10:17 62 27 H 155/100 H 100 12/04/20 10:15 63 25 H 12/04/20 10:13 61 25 H 12/04/20 10:05 97.9 F 55 L 20 141/92 H 100 PG Care Time/CCT Total # of Minutes Spent Total Time Spent with Patient: Total time spent is greater than 50% in coordination of care (as documented) at patient's floor/unit and/or counseling patient: Coding Level of Care Code 39494 Inpt Consult Level 5 Diagnoses Acute NH I21.9
[2020-12-04] MEDS ORDERED: EPTIFIBATIDE 75 MG/100 ML VIAL IV SCH (12:45)
[2020-12-04] MEDS ORDERED: SODIUM CHLORIDE 0.9% 1000ML 1,000 ML IV SCH (12:45)
--- NOTE | 2020-12-04 13:02 | Cardiac Catheterization ---
ACC Data: Recruitment Consultant Cardiac Status Clinical evaluation leading to the procedure CAD Presenation: Non STEMI Anginal Classification: CCS IV Heart Failure: No Cardiogenic Shock within 24 Hours: No Cardiac Arrest within 24 Hours: No Imaging Studies Past 6 Months: No Stress Studies Past 6 Months: No Diagnostic Physicians Name: Ricardo Mcdaniels MD Closure Device Percutaneous Entry Location: Radial Closure Device: Radial Band Recommendations: PCI without planned CABG PCI Indication: PCI for high risk Non-LEONARD First Noted: First EKG Lesion Segment Name: mid LAD Culprit Artery: Yes Stenosis Prior to Rx (%): 95+ Chronic Total Occlusion: No IVUS: Yes FFR: No Pre-Procedure PANFILO Flow: 2 Previously Treated Lesion: No Lesion Complexity: High/C Lesion Length (mm): 25 Thrombus Present: Yes Bifurcation Lesion: Yes Guidewire Across Lesion: Stenosis Post-Procedure (%): 0 Post-Procedure PANFILO Flow: 3 Devices(s) Deployed: Yes Yes Lesion #2 Segment Name: 1st diagonal Culprit Artery: Yes Stenosis Prior to Rx (%): 100 Chronic Total Occlusion: No IVUS: Yes FFR: No Pre-Procedure PANFILO Flow: 0 Previously Treated Lesion: Yes Timeframe: greater than 2 years Treated with Stent: Yes In-Stent Restenosis: No In-Stent Thrombosis: Yes Stent Type: ARIANA Lesion Complexity: High/C Lesion Length (mm): 15 Thrombus Present: Yes Bifurcation Lesion: Yes Guidewire Across Lesion: Yes Stenosis Post-Procedure (%): 0 Post-Procedure PANFILO Flow: 3 Devices(s) Deployed: Yes Intraprocedure Events Significant Disection: No Perforation: No Cardiac Cath Procedure Full Procedure Date December 04, 2020 Pre-Procedure Diagnosis Pre-Procedure Diagnosis: Acute Coronary Syndrome AUC Score AUC Score: 8 Post-Procedure Diagnosis Post-Procedure Diagnosis: Severe CAD, Successful PCI and Normal Intracardiac Pressures Procedure(s) Performed Procedure(s) Performed: Coronary Angiography, Left Heart Cath, Drug Eluting Stent and IVUS Bulk Filler Ricardo Mcdaniels MD Operations Specialist(s) Joey Srinivasan Estimated Blood Loss Estimated Blood Loss: 15 Medication(s) Medication(s): Fentanyl, Heparin, Integrilin, Lidocaine 1%, Nicardipine, Nitroglycerin and Versed Medication(s): Ticagrelor Summary of Findings Indication: Acute coronary syndrome/heart alert. History of coronary disease with prior AR with placement of 2 ARIANA to diagonal Access: 6 Fr right radial artery Catheters: [place], EBU 3.5 guide, diagnostic JR4 Findings: LM -normal caliber, no significant disease LAD -large caliber, large subtotally occlusive thrombus in earlymid LAD at bifurcation with stented D1. Remainder vessel with luminal regularities and wr aps around apex. D1 stents completely occluded. Circumflex -large caliber vessel without significant disease RCA -dominant, large caliber, proximal/mid segment luminal irregularities. LVEDP -10 -- PCI -- Antithrombotic therapy: Heparin, Integrilin, ticagrelor Procedure: Left main cannulated with EBU 3.5 guide BMW wire passed across lesion into distal LAD Wellness Program Coordinator 50 wire passed across D1 occlusion into distal vessel LAD predilated with 2.5 balloon Occluded D1 lesion predilated with 2.5 compliant balloon [place] IVUS catheter placed into distal D1. Pullback revealed no significant in-stent disease. Stent underexpanded proximally. Looking IVUS catheter placed into mid LAD. Pullback revealed eccentric, mild to moderate plaque from mid segment back to proximal vessel with clot and proximal aspect of D1 stent protruding just into LAD Proximal D1 stents dilated with 2.5 NC balloon Proximal to mid LAD stented with 3.5 x 30 mm [place] drug-eluting stent D1 rewired through stent struts with corporate pilot 50 wire [place] of jailed D1 dilated with 2.0 balloon through stent struts LAD stent post-dilated with 4.0 noncompliant balloon IC vasodilators administered for spasm Repeat IVUS of LAD showed well-expanded, well apposed stent with no apparent edge complications Post procedure PANFILO 3 flow in LAD, diagonal, stents well expanded with minimal residual stenosis and no apparent cardiac complications. Arterial Closure: TR band Summary: 1. Subtotal thrombotic occlusion of earlymid LAD at bifurcation of 1st diagonal 2. Occluded 1st diagonal stents secondary to very late stent thrombosis 3. Minimal nonculprit coronary artery disease 4. Normal intracardiac filling pressure 5. Successful PCI of proximal to mid LAD with single drug-eluting stent (3.5 x 30 mm [place]; postdilated with 4.0 NC). 6. Successful PTCA of occluded D1 stents with 2.5 NC balloon Recommendations: Admit to ICU for continued monitoring Continue Integrilin for 4 hours post PCI Loaded with ticagrelor 180 mg in Recruitment Consultant In the setting of very late stent thrombosis recommend indefinite DAPT Trend troponins until peak, Check Echo Uptitrate beta-ibis/SALVADOR as BP allows High-dose statin Consult cardiac Rehab Hemodynamics Rest Ao:: 118/65/90 Final Ao: 107/56/78 LV: 118/10 Recommendations Recommendations: PCI without planned CABG Specimens Specimens: None Radiation Exposure (mGy) 1266 Contrast (mls) 100 Fluids (cc crystalloids) Fluids (cc crystalloids): 850 Drains Drains: none Anesthesia moderate Procedural Complication(s) None Disposition ICU I attest to the content of the Intraoperative Record and any orders documented therein. Any exceptions are noted below. [facility] Card Cath Procedure Codes Cardiac Catheterization Procedure 1: Cardiovascular Cath Procedures: 42664 Coronaries and LHC (+/-LV) Therapeutic Services & Ancillary Proc Procedure 1: Cardiovascular Tx and Anc Procedures: 92499 IV Ultrasound (Coronary or Graft) Moderate Sedation Procedure 1: Sedation/Anesthesia: 41445 Mod Sedation by the same physician;Init15 Min Child Age 5 & Up Procedure 2: Sedation/Anesthesia: 51868 Mod Sedation by the same physician; Ea [id number] Minutes Stenting Procedure 1: Cardiovascular Stent Procedures: 38863 Perc transluminal revascularization of acute sub/total occl, aMI PG Care Time/CCT Total # of Minutes Spent Total Time Spent with Patient: Total time spent is greater than 50% in coordination of care (as documented) at patient's floor/unit and/or counseling patient:
--- NOTE | 2020-12-04 14:45 | Critical Care Consultation ---
Date of Consultation December 04, 2020 Assessment & Plan (1) Acute NM: Reason Critically Ill: Acute coronary syndrome s/p PCI of proximal to mid LAD with 1x ARIANA and successful PTCA of occluded D1 stents with 2.5 NC balloon. NEURO: -Well appearing and oriented x3 -No acute concerns at this time CARDIAC: -Initial EKG with T wave inversions in III, aVF and V3 -Initial Troponin elevated 0.05, trend to peak -S/P PCI of proximal to mid LAD with 1x ARIANA and PTCA of occluded D1 stents with 2.5 NC balloon. -Loaded with Ticagrelor 180mg in laboratory scientist -Will continue Integrilin infusion x4 hours post PCI -Per cardiology in setting of late stent thrombosis will continue indefinite DAPT -Cardiac Rehab consulted -Check Echo in AM -AM Lipids and HgbA1C -Continue Atorvastatin 80mg QD -Continue ASA 81mg QD -Continue Brilinta 90mg BID -Continue Lisinopril 5mg QD, uptitrate as tolerated -Continue Metoprolol 12.5mg BID, uptitrate as tolerated RESPIRATORY: -Currently saturating at 99% on room air. GI: -Heart Healthy Diet ordered RENAL/LYTES: -No acute concerns -Creatinine 1.31 admission, will monitor tomorrow since s/p dye from cath -NSS 100ml/hr, stop after 750mL : -No Anand catheter in place -Voiding appropriately ENDO: -No Hx of DM or thyroid disease HEME: -Hgb 16 on admission -Continue to monitor as patient s/p Colonoscopy and polyp removal 12/01/20 ID: -No acute concerns at this time. LINES/IV ACCESS: R antecubital, R ant forearm periph CODE STATUS: Full code DVT PROPHYLAXIS: Integrilin infusion, DAPT Thank you for allowing us to participate in the care of this patient. Please refer to my attending physician's documentation for any further recommendations. Supervising Physician Co-Signing Physician Notes Dr. Choi Was the resident-physician during care of patient. I separately evaluated patient for [place] portions of the history and the exam. I was present during the critical portion of medical decision making, and I discussed the case with the resident. I generally agree with the findings and plan except for any additions/exceptions noted. Continue usual post PCI care. Hold beta-ibis for heart rate less than 60. Echo, A1c and lipids tomorrow morning. Continue aspirin, Brilinta, lisinopril, high-dose statin and completion of Integrilin infusion. Cardiology following. Appreciate their assistance. Patient to remain in the ICU per cardiology recommendations. History of Present Illness Reason for Consultation: ACS Requesting Physician: Arslan Attending Physician: Ricardo Mcdaniels MD History of Present Illness Patient is a 50 year old male with PMHx Hypercholesterolemia, prior STEMI 2013 of occluded first diagonal treated with 2 ARIANA who presented the morning of 12/04/20 shortly after experiencing nausea and sternal tightness. Patient noted that he was out shoveling snow around 8:30AM the day of admission and upon coming back inside felt nauseous. He states he vomited once, but began having sternal tightness which felt similar to his previous heart attack and felt it appropriate to present to the ED for evaluation. Patient notes that he had recently been holding his clopidogrel for the past 9 days due to a recent colonoscopy on 12/01/20 where he had multiple polpys removed. He states that he was otherwise taking his ASA, BB, ACEi, statin as prescribed. Upon arrival to the ED a heart alert was activated and patient was transported to the cardiac laboratory scientist where he underwent PCI of the proximal to mid LAD with a single ARIANA and successful PTCA of occluded D1 stents. Currently patient is resting in the ICU bed comfortably and eating his lunch. He notes that he is no longer having nausea or chest tightness and that he otherwise feels well. Denies any fever, chills, SOB, chest pain, abdominal pain, headache. Allergies Allergy/AdvReac Type Severity Reaction Status Date / Time No Known Drug Allergies Allergy Verified 12/04/20 10:42 Home Medications Medication Instructions Recorded Confirmed Type aspirin 81 mg PO QAM 08/30/18 12/04/20 History clopidogrel 75 mg tablet 75 mg PO QAM #90 tab 12/27/19 12/04/20 Rx atorvastatin 80 mg tablet 80 mg PO QAM #90 tab 01/07/20 12/04/20 Rx metoprolol tartrate 25 mg tablet 12.5 mg PO BID #90 tab 01/07/20 12/04/20 Rx Patient History Medical History CAD (coronary artery disease) History of kidney stones History of NM (myocardial infarction) 2013--follows with Dr. Johnson Hypercholesterolemia On anticoagulant therapy plavix daily d/t stents/NM Surgical History History of cardiac cath (~06/2014) @ [facility] History of colonoscopy with polypectomy History of heart artery stent (2)ARIANA @ [facility] 06/2014 History of wisdom tooth extraction Family History Uncle Family hx of colon cancer Father Family hx colonic polyps Other No family history of adverse response to anesthesia No pertinent family history Social History Smoking Status: Never smoker Second Hand Exposure: No; Hx Alcohol Use: No Hx Substance Use: No Preferred Language: [place] Communication Ability: Effective Commercial Intern Required: No Beliefs That Will Affect Care: None Current Living Situation: Spouse Other Information That Helps Us Care for You: No Feels Safe at Home: Yes Safety Concerns: Feels Safe At This Time Assistive Devices: Glasses Review of Systems Review of Systems: All systems reviewed & are unremarkable except as noted in Subjective Physical Exam Constitutional: WD/WN, vitals as above Eyes: PERRL, conjunctivae normal, anicteric sclerae Neck: trachea midline, no thyromegaly Respiratory: normal respiratory effort, lungs clear to auscultation Cardiovascular: RRR, no murmur, no edema R radial hemostasis band in place, no surrounding bleeding noted. Gastrointestinal (Abdomen): normal bowel sounds, soft, nontender, no hepatosplenomegaly Psychiatric: A+Ox3, euthymic affect Results & Data Results & Data ([facility]) Vital Signs (Past 12 Hours) Vital Signs Temp Pulse Pulse Resp BP BP Pulse Ox 12/04/20 14:16 57 L 17 145/75 H 99 12/04/20 14:15 59 L 21 98 12/04/20 14:09 57 L 12/04/20 14:00 63 15 134/79 100 12/04/20 13:45 58 L 20 138/77 100 12/04/20 13:30 58 L 16 151/91 H 100 12/04/20 13:22 36.7 C 60 18 145/83 H 56 L 12/04/20 13:16 56 L 24 100 12/04/20 12:42 51 L 16 132/79 98 12/04/20 12:27 51 L 16 131/97 98 12/04/20 12:12 51 L 16 111/78 98 12/04/20 10:47 36.5 C 58 L 25 H 152/91 H 100 12/04/20 10:45 58 L 25 H 152/91 H 100 12/04/20 10:38 61 26 H 100 12/04/20 10:37 61 25 H 129/95 100 12/04/20 10:36 63 24 99 12/04/20 10:35 61 25 H 137/88 100 12/04/20 10:31 76 19 97 12/04/20 10:30 71 32 H 123/96 99 12/04/20 10:29 66 27 H 151/91 H 100 12/04/20 10:25 64 30 H 151/89 H 100 12/04/20 10:24 64 24 150/90 H 100 12/04/20 10:20 65 24 100 12/04/20 10:17 62 27 H 155/100 H 100 12/04/20 10:15 63 25 H 12/04/20 10:13 61 25 H 12/04/20 10:05 36.6 C 55 L 20 141/92 H 100 Resident Activity Tracking Resident Involvement: Resident Care Provided Care Provided: Adult Hospital Medicine
--- NOTE | 2020-12-04 16:10 | Billing Data ---
Date of Service December 04, 2020 Coding Level of Care Code 37357 Inpt Consult Level 4
[2020-12-04] MEDS: METOPROLOL TARTRATE 25 MG TAB PO SCH (20:33)
[2020-12-04] MEDS: TICAGRELOR 90 MG TAB PO SCH (22:27)
[2020-12-04] MEDS: FAMOTIDINE 20 MG TAB PO SCH (22:55)
[2020-12-05 05:00] LABS: Basophils # (auto) 0.03 K/uL (0-0.2); Basophils % (auto) 0.4 %; Eosinophils # (auto) 0.04 K/uL (0-0.5); Eosinophils % (auto) 0.5 %; Hematocrit (blood only) 41.4 % (42-52); Hemoglobin 14.1 g/dL (14.0-18.0); Immature Granulocytes # (auto) 0.01 K/uL (0.00-0.02); Immature Granulocytes % (auto) 0.1 %; Lymphocytes # (auto) 1.65 K/uL (1.2-3.4); Mean Corpuscular Hemoglobin 29.5 pg (25-34); Mean Corpuscular Hgb Conc 34.1 g/dL (32-36); Mean Corpuscular Volume 86.6 fL (80-100); Mean Platelet Volume 10.2 fL (7.4-10.4); Monocytes # (auto) 0.88 K/uL (0.11-0.59); Monocytes % (auto) 11.7 %; Neutrophils % (auto) 65.3 %; Platelet Count 217 K/uL (130-400); RDW Coefficient of Variation 12.6 % (11.5-14.5); RDW Standard Deviation 40.8 fL (36.4-46.3); Red Blood Count 4.78 M/uL (4.7-6.1); White Blood Count 7.51 K/uL (4.8-10.8)
[2020-12-05 05:46] LABS: BUN Creatinine Ratio 17.8 (10-20); Blood Urea Nitrogen 16 mg/dl (7-18); Calcium 8.1 mg/dl (8.5-10.1); Carbon Dioxide 22 mmol/L (21-32); Chloride 110 mmol/L (98-107); Creatinine Clr Calc Pharmacy 112.3 ml/min; Est GFR (African American) 110.4; Est GFR (Non-African American) 95.3; Glucose 92 mg/dl (70-99); Magnesium 2.4 mg/dl (1.8-2.4); Sodium 140 mmol/L (136-145)
[2020-12-05 06:04] LABS: Estimated Average Glucose 114 mg/dl; Hemoglobin A1C 5.6 % (4.5-5.6)
--- NOTE | 2020-12-05 06:18 | Electrocardiogram Report ---
Test Reason : Blood Pressure : / mmHG Vent. Rate : 058 BPM Atrial Rate : 058 BPM P-R Int : 146 ms QRS Dur : 104 ms QT Int : 446 ms P-R-T Axes : -12 025 -07 degrees QTc Int : 437 ms Poor data quality, interpretation may be adversely affected Sinus bradycardia RSR' or QR pattern in V1 suggests right ventricular conduction delay ST elevation, consider lateral injury Abnormal ECG When compared with ECG of 30-AUG-2018 14:23, ST now depressed in Inferior leads T wave inversion now evident in Inferior leads ST elevation now present in Lateral leads Confirmed by Aaron Velazco ([id number]) on 12/05/2020 6:18:33 AM Referred By: REFERRED SELF Confirmed By:Aaron Velazco
--- NOTE | 2020-12-05 06:19 | Electrocardiogram Report ---
Test Reason : Blood Pressure : / mmHG Vent. Rate : 059 BPM Atrial Rate : 059 BPM P-R Int : 144 ms QRS Dur : 102 ms QT Int : 440 ms P-R-T Axes : -14 027 -05 degrees QTc Int : 435 ms Poor data quality, interpretation may be adversely affected Sinus bradycardia RSR' or QR pattern in V1 suggests right ventricular conduction delay ST elevation, consider lateral injury pattern Abnormal ECG When compared with ECG of 04-DEC-2020 10:10, No significant change was found Confirmed by Aaron Velazco ([id number]) on 12/05/2020 6:19:19 AM Referred By: REFERRED SELF Confirmed By:Aaron Velazco
[2020-12-05 06:21] LABS: Chol HDL Ratio 3; Cholesterol 123 mg/dl (0-200); HDL Cholesterol 42 mg/dl; LDL Cholesterol Direct 67 mg/dl; Triglycerides 128 mg/dl (0-150); VLDL Cholesterol 26 mg/dl
--- NOTE | 2020-12-05 06:30 | Electrocardiogram Report ---
Test Reason : Blood Pressure : / mmHG Vent. Rate : 054 BPM Atrial Rate : 054 BPM P-R Int : 158 ms QRS Dur : 104 ms QT Int : 440 ms P-R-T Axes : 008 037 022 degrees QTc Int : 417 ms Sinus bradycardia Possible Lateral infarct , age undetermined Abnormal ECG When compared with ECG of 04-DEC-2020 10:20, T wave inversion no longer evident in Inferior leads Confirmed by Aaron Velazco ([id number]) on 12/05/2020 6:30:28 AM Referred By: REFERRED SELF Confirmed By:Aaron Velazco
[2020-12-05] MEDS: TICAGRELOR 90 MG TAB PO SCH ×2 (07:35→20:13)
[2020-12-05] MEDS: ASPIRIN 81 MG ECTAB PO SCH (07:35)
[2020-12-05] MEDS: ATORVASTATIN 40 MG TAB PO SCH (07:35)
[2020-12-05] MEDS: FAMOTIDINE 20 MG TAB PO SCH ×2 (07:36→07:40)
[2020-12-05] MEDS: lisinopril 5 MG TAB PO SCH (07:36)
[2020-12-05] MEDS: METOPROLOL TARTRATE 25 MG TAB PO SCH ×2 (07:36→20:13)
--- NOTE | 2020-12-05 07:41 | Critical Care Progress Note ---
Date of Service December 05, 2020 Assessment & Plan (1) Acute ID: Reason Critically Ill: Acute coronary syndrome s/p PCI of proximal to mid LAD with 1x ARIANA and successful PTCA of occluded D1 stents with 2.5 NC balloon. NEURO: -Well appearing and oriented x3 -No acute concerns at this time CARDIAC: -Initial EKG with T wave inversions in III, aVF and V3 -With 3 ventricular beats overnight around 9PM. -Initial Troponin elevated 0.05, appears peaked at 75.2 -S/P PCI of proximal to mid LAD with 1x ARIANA and PTCA of occluded D1 stents with 2.5 NC balloon. -Loaded with Ticagrelor 180mg in [employer] -Completed 4 hour post Integrilin infusion. -Per cardiology in setting of late stent thrombosis will continue indefinite DAPT -Cardiac Rehab consulted -Check Echo in AM - pending -HgbA1C 5.6% -LDL 67, HDL 42, Total Chol 123 -Continue Atorvastatin 80mg QD -Continue ASA 81mg QD -Continue Brilinta 90mg BID -Continue Lisinopril 5mg QD, uptitrate as tolerated -Continue Metoprolol 12.5mg BID, uptitrate as tolerated though patient relatively bradycardic at times in the 50's overnight. Currently 66-68BPM. RESPIRATORY: -Currently saturating at 95% on room air. GI: -Heart Healthy Diet ordered RENAL/LYTES: -No acute concerns -Creatinine 1.31 admission, Cr 0.92 this AM stable. -NSS 100ml/hr, DC'd after 750mL yesterday : -No Anand catheter in place -Voiding appropriately ENDO: -No Hx of DM or thyroid disease HEME: -Hgb 16 on admission -Continue to monitor as patient s/p Colonoscopy and polyp removal 12/01/20 -Hgb 14.1 this AM ID: -No acute concerns at this time. LINES/IV ACCESS: R antecubital, R ant forearm periph CODE STATUS: Full code DVT PROPHYLAXIS: DAPT DISPO: ICU status for post-cath monitoring, suspect downgrade to PCU/Med- Telemetry later today per Cardiology's recommendation. Thank you for allowing us to participate in the care of this patient. Please refer to my attending physician's documentation for any further recommendations. Admission and Anticipated Discharge Date Admission Date: December 04, 2020 Supervising Physician Co-Signing Physician Notes Dr. Choi Was the resident-physician during care of patient. I separately ev aluated patient for [place] portions of the history and the exam. I was present during the critical portion of medical decision making, and I discussed the case with the resident. I generally agree with the findings and plan except for any additions/exceptions noted. Echo report is pending. Continue dual antiplatelet therapy, beta-ibis, SALVADOR inhibitor, high-dose statin. Lipids and A1c were checked. Patient has had no significant complications post PCI on 12/04/2020. Stable to transfer to floor with telemetry. ICU will sign off at this time. Thank you for the consult. Subjective Patient without complaints overnight. No recurrent occurrences of nausea or chest tightness. No fever, chills, SOB, chest pain, abdominal pain, dizziness, headache. Review of Systems Review of Systems: All systems reviewed & are unremarkable except as noted in Subjective Physical Exam Constitutional: WD/WN, vitals as above Eyes: PERRL, conjunctivae normal, anicteric sclerae Neck: trachea midline, no thyromegaly Respiratory: normal respiratory effort, lungs clear to auscultation Cardiovascular: Rate/Rhythm: + bradycardic Heart Sounds: no murmur Vessels: posterior tibial pulses present, dorsalis pedis pulses present, radial pulses present and ulnar pulses present Extremities: normal capillary refill; no edema Dressing on R wrist clean and dry Gastrointestinal (Abdomen): normal bowel sounds, soft, nontender, no hepatosplenomegaly Skin: no rashes, warm and dry Psychiatric: A+Ox3, euthymic affect Results & Data Results & Data ([facility]) Vital Signs (Past 12 Hours) Vital Signs Temp Pulse Resp BP Pulse Ox 12/05/20 02:22 50 L 18 142/80 H 96 12/05/20 01:17 54 L 20 142/81 H 96 12/05/20 00:00 54 L 12/04/20 23:22 56 L 19 143/83 H 96 12/04/20 23:00 36.8 C 56 L 20 97 12/04/20 22:22 51 L 11 L 142/85 H 98 12/04/20 22:00 58 L 12 98 12/04/20 21:22 49 L 12 144/88 H 98 12/04/20 20:36 55 L 12/04/20 20:30 55 L 11 L 99 12/04/20 20:22 50 L 15 151/94 H 98 12/04/20 20:15 57 L 17 96 12/04/20 20:00 36.9 C 55 L 17 98 12/04/20 19:45 53 L 15 97 12/04/20 19:30 50 L 17 97 Resident Activity Tracking Resident Involvement: Resident Care Provided Care Provided: Adult Hospital Medicine
--- NOTE | 2020-12-05 09:37 | XCELERA ---
[id number] [id number]
--- NOTE | 2020-12-05 11:29 | Billing Data ---
Date of Service December 05, 2020 Coding Level of Care Code 16141 Subseq Hosp Care Lvl 3
--- NOTE | 2020-12-05 16:07 | Cardiology Progress Note ---
Date of Service December 05, 2020 Assessment & Plan (1) CAD (coronary artery disease): --post PCI to LAD/diagonal 2. Preserved LV function --EF 55% with anterior lateral hypokinesis 3. Dyslipidemia 4. Sinus bradycardia Chest pain-free. Troponin is peaked. LV function preserved. No signs of heart failure on exam. Electrically stable No access site complications. Continue DAPT with aspirin, ticagrelor. Plan for extended DAPT Continue current metoprolol, lisinopril Continue current high-intensity statin Transfer to telemetry today. Likely discharge tomorrow morning. Admission and Anticipated Discharge Date Admission Date: December 04, 2020 Subjective Patient feeling well. No recurrent chest pain. No other new complaints. Telemetry reviewedintermittent sinus bradycardia. No ventricular arrhythmia Review of Systems Review of Systems: All systems reviewed & are unremarkable except as noted in HPI & below Physical Exam Physical Exam: General: Comfortable HEENT: Mask in place Lungs: Clear to auscultation bilaterally Cardiac: Regular rate and rhythm, no murmurs. Abdomen: Soft, nontender. Extremities: Warm, well perfused, no edema. Right radial artery access site with no ecchymosis, hematoma. Distal pulse and sensation intact. Skin: No rashes or lesions. Neuro: Nonfocal Psych: Alert orient x3, normal affect and mood Results & Data ([facility]) Vital Signs (Past 12 Hours) Vital Signs Temp Pulse Resp BP Pulse Ox 12/05/20 12:00 98.8 F 58 L 20 94 12/05/20 11:23 48 L 17 115/66 95 12/05/20 11:00 50 L 21 96 12/05/20 10:23 48 L 18 115/73 95 12/05/20 10:00 53 L 20 95 12/05/20 09:23 56 L 18 128/78 94 12/05/20 09:04 96 12/05/20 08:22 56 L 17 126/79 95 12/05/20 08:00 98.1 F 62 24 95 12/05/20 07:23 53 L 17 137/72 97 12/05/20 07:00 49 L 17 95 PG Care Time/CCT Total # of Minutes Spent Total Time Spent with Patient: Total time spent is greater than 50% in coordination of care (as documented) at patient's floor/unit and/or counseling patient: Coding Level of Care Code 75271 Subseq Hosp Care Lvl 3 Diagnoses CAD (coronary artery disease) I25.10
[2020-12-06 07:56] LABS: BUN Creatinine Ratio 16.3 (10-20); Calcium 8.4 mg/dl (8.5-10.1); Creatinine Clr Calc Pharmacy 105.4 ml/min; Est GFR (African American) 102.3; Est GFR (Non-African American) 88.3; Potassium 4.3 mmol/L (3.5-5.1)
[2020-12-06] MEDS: lisinopril 5 MG TAB PO SCH (08:04)
[2020-12-06] MEDS: ATORVASTATIN 40 MG TAB PO SCH (08:04)
[2020-12-06] MEDS: ASPIRIN 81 MG ECTAB PO SCH (08:04)
[2020-12-06] MEDS: TICAGRELOR 90 MG TAB PO SCH (08:05)
[2020-12-06] MEDS: METOPROLOL TARTRATE 25 MG TAB PO SCH (08:05)
--- NOTE | 2020-12-06 14:03 | Discharge Summary ---
Date of Service December 06, 2020 Admission HPI Per Admitting Provider Mr. Desai is a 50-year-old man here with acute chest pain and ECG consistent with ACS. Patient seen emergently in the ED after heart alert activated after serial ECGs. Patient followed by Dr. Johnson for his cardiac care. Past cardiac history remarkable for prior STEMI in 2013 at which time had an occluded first diagonal treated with 2 overlapping drug-eluting stents. Cardiac risk factors include hyperlipidemia and family history of premature CAD with mother from an AL in her 50s. Chest pain began approximately 90 minutes prior to arrival while at rest. Describes substernal pain with associated diaphoresis, vomiting. Pain reminiscent of prior symptoms with AL. Of note patient had been on long-term DAPT with aspirin, clopidogrel. Clopidogrel recently on hold for colonoscopy done 12/01/2020. Found to have sessile polyps. Patient with persistent chest pain in the ED despite sublingual nitroglycerin. ECG showed sinus rhythm with new deep ST depressions, T wave inversions in 3, aVF and V3 and subtle lateral ST elevations. Specialty Data Cardiology Cardiac cath/PCI: 1. Subtotal thrombotic occlusion of earlymid LAD at bifurcation of 1st diagonal 2. Occluded 1st diagonal stents secondary to very late stent thrombosis 3. Minimal nonculprit coronary artery disease 4. Normal intracardiac filling pressure 5. Successful PCI of proximal to mid LAD with single drug-eluting stent (3.5 x 30 mm [place]; postdilated with 4.0 NC). 6. Successful PTCA of occluded D1 stents with 2.5 NC balloon Discharge Data Consultations 12/04/20 12:37 Consult Cardiac Rehabilitation Routine Consult Case Management - Discharge Planning Routine Consult Director Of Security Routine Procedures Performed Operation Date: 12/04/20 10:30 Actual Procedures p Drug Eluting Stent SGl Vessel - Demetrius Mcdaniels MD s POBA SGL Vessel - Demetrius Mcdaniels MD s IVUS Coronary Single Vessel - Demetrius Mcdaniels MD s IVUS Coronary each ADDL Vessel - Demetrius Mcdaniels MD s Cineradiography w/Routine Exam - Demetrius Mdcaniels MD s Cath, Left with Cors and Vent - Demetrius Mcdaniels MD Hospital Course (1) CAD (coronary artery disease): --post PCI to LAD/diagonal 2. Preserved LV function --EF 55% with anterior lateral hypokinesis 3. Dyslipidemia 4. Sinus bradycardia Patient presented with approximately 90 minutes of acute onset chest pain with dynamic ST changes on ECG, mild elevated troponin and was taken urgently for cardiac catheterization. Was found to have stent thrombosis with an acutely occluded first diagonal and a thrombotic subtotal occlusion of his mid LAD at bifurcation with diagonal. Patient underwent successful PCI with angioplasty to occluded diagonal stent and new ARIANA placed to proximal to mid LAD. Post procedure admitted to ICU/telemetry. Troponin peaked at 75. Post procedure echocardiogram showed preserved LV function with EF of 55% and new mid to distal anterolateral wall motion abnormality. Remainder of hospital course was uncomplicated. Discharged home on hospital day 3 on DAPT with aspirin, ticagrelor. Recommend extended DAPT in the setting of bifurcation stenting and very late stent thrombosis. 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 Further discussion regarding cardiac rehab at that time. Coding Level of Care Code D/C Day Management <30 mins Diagnoses CAD (coronary artery disease) I25.10
== END 2020-12-06 12:21 | disposition home or self-care (01) | DRG 247 ==
LOC: ED 09:58 → CC 10:47 → 1E 12:37 → 2S 12-05 18:48